=== PATIENT | female | born 1955 | race Caucasian/White ===

== ENCOUNTER 2020-09-30 12:51 | Outpatient (CLI) | payer BC | END 2020-09-30 12:52 | disposition home or self-care (01) | LOC: BICULT 12:51 | PROVIDERS: ATTEND Urology | DX: N20.0 Calculus of kidney (principal); N39.0 Urinary tract infection, site not specified | CPT/HCPCS: 74018; 76770 ==

== ENCOUNTER 2021-03-28 13:00 | Outpatient (CLI) | payer BC | END 2021-03-28 13:01 | disposition home or self-care (01) | LOC: BICRAD 13:00 | PROVIDERS: ATTEND Urology | DX: N20.0 Calculus of kidney (principal) | CPT/HCPCS: 74018 ==

== ENCOUNTER 2023-12-14 14:52 | Outpatient (CLI) | payer MEDICARE | END 2023-12-14 14:53 | disposition home or self-care (01) | LOC: ULT 14:52 | PROVIDERS: ATTEND Urology | DX: N20.0 Calculus of kidney (principal); N39.0 Urinary tract infection, site not specified; N28.1 Cyst of kidney, acquired; N28.9 Disorder of kidney and ureter, unspecified | CPT/HCPCS: 74018; 76770 ==

== ENCOUNTER 2024-05-19 12:45 | Outpatient (CLI) | payer MEDICARE | END 2024-05-19 12:46 | disposition home or self-care (01) | LOC: BICMAMMO 12:45 | PROVIDERS: ATTEND Family Medicine | DX: Z12.31 Encounter for screening mammogram for malignant neoplasm of breast (principal); Z80.3 Family history of malignant neoplasm of breast; Z85.43 Personal history of malignant neoplasm of ovary; Z85.828 Personal history of other malignant neoplasm of skin | CPT/HCPCS: 77063; 77067 ==

== ENCOUNTER 2025-05-21 13:46 | Outpatient (CLI) | payer MEDICARE | END 2025-05-21 13:47 | disposition home or self-care (01) | LOC: BICMAMMO 13:46 | PROVIDERS: ATTEND Family Medicine | DX: Z12.31 Encounter for screening mammogram for malignant neoplasm of breast (principal); Z80.3 Family history of malignant neoplasm of breast; Z85.828 Personal history of other malignant neoplasm of skin; Z85.43 Personal history of malignant neoplasm of ovary | CPT/HCPCS: 77063; 77067 ==